=== PATIENT | male | born 1965 | race Two or more races ===

== ENCOUNTER 2017-01-03 09:31 | Emergency (ER) | payer OTHER ==
--- NOTE | ~2017-01-03 | ER ---
PATIENT'S NAME: POOJA LEOS [facility] AGE: 51 Y [address] ROOM: [place] [address] LOCATION: ED ADMIT DATE: 01/03/2017 ER/Outpatient Report DISCHARGE DATE: 01/03/2017 FAMILY PHYSICIAN: Miladys Holloway MD ATTENDING PHYSICIAN: Mike Cotton Admission date and time documented on the medical record. I saw the patient at 0945 hours. CHIEF COMPLAINT: Chest pain. HISTORY OF PRESENT ILLNESS: This is a 51-year-old male who comes in with left anterior chest pain radiating to his left shoulder, started this morning at about 8:30 hours at work. He had accompanied dizziness, lightheadedness, with some nausea. No shortness of breath, diaphoresis, or vomiting. No recent coughs, colds, flus, fever, chills, or sweats. No fall or trauma. He has had some problems with his blood pressure of late. Does have insulin-dependent diabetes mellitus. No history of cardiac problems other than the hypertension. He had a similar episode this past , that last about 10-12 hours and then again on Tuesday, that last about 3 hours. He was seen on Tuesday of this past week by his personal physician. No headache, eyes, ears, nose, throat, neck, or spine pain. No abdominal pain, diarrhea, or urinary symptoms. No joint or muscle swelling, redness, or pain. No skin eruptions or rash. No history of psych issues. Does have history of CVA, but no seizure disorder or TIAs. Does have insulin-dependent diabetes mellitus since age 20. HOME MEDICATIONS: See attached medication list. ALLERGIES: NONE. SOCIAL HISTORY: Nonsmoker. Occasional intake of alcohol. SIGNIFICANT PAST MEDICAL HISTORY: Insulin-dependent diabetes mellitus type 2, MRSA positive, septic left hip, sepsis, hypertension, and dyslipidemia. OPERATIONS: Incision and drainage of left hip. REVIEW OF SYSTEMS: PATIENT'S NAME: POOJA LEOS [facility] AGE: 51 Y [address] ROOM: [place] [address] LOCATION: ED ADMIT DATE: 01/03/2017 ER/Outpatient Report DISCHARGE DATE: 01/03/2017 FAMILY PHYSICIAN: Miladys Holloway MD ATTENDING PHYSICIAN: Mike Cotton All systems reviewed by me are negative with exception of those discussed in the history of present illness. PHYSICAL EXAMINATION: VITAL SIGNS: Temperature 97.4 tympanic, pulse 76, respirations 18, blood pressure 186/104, O2 saturation on room air is 97%. Ana Coma Scale was 15. HEAD: Normocephalic. EYES: Extraocular muscles intact. PERRL. Sclerae and conjunctivae clear, nonicteric. EARS: Clear TMs bilaterally. NOSE AND THROAT: Clear. Mucous membranes moist. Teeth and jaw intact. NECK: No nuchal rigidity. No thyromegaly or cervical adenopathy. No carotid bruits. SPINE: Negative. LUNGS: Clear to air flow. No rales, rhonchi, or wheezes. HEART: Regular. Pulses are palpable. No chest wall or ribcage tenderness to palpation. ABDOMEN: Soft, nondistended, nontender. Good bowel tones. No organomegaly or abnormal mass palpable. EXTREMITIES: Intact. No peripheral edema, cyanosis, or deformity. Neurovascular, intact. SKIN: Clear. DIAGNOSTIC DATA: EKG showed no acute ST elevation, ischemic change, or arrhythmia. Chest x-ray showed no acute infiltrate or changes. Laboratory, D-dimer was elevated 0.68. CMS was normal except an elevated blood sugar of 205, low calcium of 8.3, magnesium was 1.8. CPK was 108. Point of care cardiac enzymes were normal x2, 2 hours apart. White count is 9500, 72 segs, 18 lymphs, 9 monos, 1 eosinophil. Hemoglobin is 14.5, hematocrit 44.3, platelet count 298,000. PTT was 24, pro-time is 9.9 with an INR 0.94. Since the patient's D-dimer was elevated, we did proceed with a CT scan of the chest with PE protocol. Scan was read by Radiology. Impression was very abnormal lower lobes with patchy ground-glass and opacities with some bronchial wall thickening. Could be inflammatory or allergic, but could not exclude a chronic process. There is some patchy opacity in the lingula of the left upper lobe. Again, there was no pulmonary embolism. IMPRESSION: 1. Left anterior chest pain, etiology uncertain. Cardiac workup was negative. He does have some lung abnormalities on CT scan that could be consistent with inflammatory, allergic, or infective process. 2. Hypertension. 3. Insulin-dependent diabetes mellitus type 2. PATIENT'S NAME: POOJA LEOS [facility] AGE: 51 Y [address] ROOM: [place] [address] LOCATION: ED ADMIT DATE: 01/03/2017 ER/Outpatient Report DISCHARGE DATE: 01/03/2017 FAMILY PHYSICIAN: Miladys Holloway MD ATTENDING PHYSICIAN: Mike Cotton 4. Dyslipidemia. PLAN: I did discuss the patient with Dr. Sharma, granulating machine operator. Dr. Sharma suggested treating him as a pneumonia with Levaquin 500 mg once a day and then Motrin 800 mg 4 times a day for possible inflammatory process. He said that if he continues to worsen and by Tuesday if he is lot worse, he needs to come to his clinic. If he does better, he is to follow up in [address] scan is back to normal or markedly improved, we will probably let him go home. If it is unchanged, he will probably need to have a bronchoscopy. I did address his hypertension. We will place him on lisinopril/hydrochlorothiazide 10 mg/12.5 mg once a day for 2 weeks. He is to follow up with his personal physician in 1 to 2 weeks to monitor his blood pressure. Discussion ensued with the patient concerning my findings and recommendations, he understands. MD HERNANDEZ GARCIA/modl /[id number] d: 01/03/171812 t: 01/04/1712, OUTPATIENT REPORT
[~2017-01-03 09:31] MED LIST: ADVIL200 MG PO; ASPIRIN EC325 MG PO; BACTRIM DS1 TAB PO; BACTROBAN N1 GM/TUBE TOP; CELEBREX200 MG PO; CIALIS10 MG PO; COLACE100 MG PO; GLUCOSE4 GM PO; GLYBURIDE5 MG PO; HUMULIN N100 UNIT/2 SUB-Q; LACTINEX (FLORA1 TAB PO; LANTUS (IN100 UNIT/M SUB-Q; LIPITOR80 MG PO; MIRALAX17 GM PO; NEURONTIN100 MG PO; NOVOLIN-N100 UNIT/M SUB-Q; NOVOLOG100 UNIT/M SUB-Q; NUCYNTA50 MG PO; PERCOCET 10-321 EACH PO; PROTONIX20 MG PO; ROCEPHIN2 G1 IV; ROXICODONE 5MG (5 MG PO; TYLENOL325 MG PO; ULTRAM50 MG PO; [UNRECOGNIZED DRUG - OTHER]
[2017-01-03 09:53] LABS: BASOPHIL % 0.3 %; EOSINOPHIL # 0.1 K/uL (0.0-0.5); EOSINOPHIL % 0.7 %; HEMOGLOBIN 14.5 g/dL (12.0-17.0); IMMATURE GRANULOCYTE % 0.2 %; LYMPHOCYTE # 1.7 K/uL (0.8-4.0); LYMPHOCYTE % 17.5 %; MCHC 32.7 gm/dL (32.0-36.5); MCV 80.5 fl (83.0-98.0); MONOCYTE # 0.9 K/uL (0.0-1.0); MONOCYTE % 9.3 %; MPV 9.9 fl (9.4-12.4); NEUTROPHIL # (ANC) 6.8 K/uL (1.4-9.0); NRBC % 0 /100WBC (0-0.00); PLATELET COUNT 298 K/uL (150-450); WBC 9.5 K/uL (4.0-11.0)
[2017-01-03 10:01] LABS: MCH 26.4 pg (27.0-34.0)
[2017-01-03 10:02] LABS: HEMATOCRIT 44.3 % (37.0-53.0)
[2017-01-03 10:07] LABS: INR - (THERAPEUTIC) 0.94 (0.92-1.07); PROTIME 9.9 SECONDS (9.8-11.4); PTT 24 SECONDS (25-32)
[2017-01-03 10:25] LABS: ALBUMIN 3.4 gm/dL (3.5-5.0); ALK PHOS 99 IU/L (33-138); ALT 21 IU/L (12-78); ANION GAP 11.8 (10.0-19.0); AST 22 IU/L (10-40); BLOOD UREA NITROGEN 22 mg/dL (6-24); CALCIUM 8.3 mg/dL (8.5-10.5); CHLORIDE 104 mMol/L (96-110); CO2 25 mMol/L (22-32); CPK 108 IU/L (35-332); CREATININE 1.2 mg/dL (0.6-1.3); ESTIMATED GFR (MDRD EQUATION) > 60; MAGNESIUM 1.8 mg/dL (1.8-2.6); POTASSIUM 3.8 mMol/L (3.7-5.1); SODIUM 137 mMol/L (135-145); TOTAL PROTEIN 7.9 g/dL (6.0-8.4)
[2017-01-03 10:26] LABS: TOTAL BILIRUBIN 0.2 mg/dL (0.0-1.5)
[2017-01-03 12:08] LABS: CPK 84 IU/L (35-332)
== END 2017-01-03 12:55 | disposition disaster alternative care site (69) ==
LOC: GMED 09:31
PROVIDERS: Emergency Medicine
DX: R07.89 Other chest pain (principal); I10 Essential (primary) hypertension; E11.9 Type 2 diabetes mellitus without complications; E78.5 Hyperlipidemia, unspecified

== ENCOUNTER 2017-04-29 06:07 | Emergency (ER) | payer OTHER ==
--- NOTE | ~2017-04-29 | ER ---
PATIENT'S NAME: DERIC [facility] AGE: 51 Y [address] ROOM: [place] [id number] LOCATION: ED ADMIT DATE: 04/29/2017 ER/Outpatient Report DISCHARGE DATE: 04/29/2017 FAMILY PHYSICIAN: Miladys Holloway MD ATTENDING PHYSICIAN: Moshe Cornejo CHIEF COMPLAINT: Altered mental status. HISTORY OF PRESENT ILLNESS: Mr. 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 He began to act confused and was not interacting appropriately. He is given apple juice and orange juice, out of concern for possible diabetic reaction and continued to be confused. An assistance alert was called and the patient was seen by the flight team. At that time, they report that he had a tonic-clonic seizure and bit his mouth. He was foaming. Exact duration was not noted, but it seemed to be less than 2 minutes. No abortive medications were given and he was brought to the emergency department. PAST MEDICAL HISTORY: Notable for multiple recurrent infections and diabetes. The patient states later on re-evaluation that he has been taking his medications as he is supposed to. Other past medical history includes recurrent orthopedic infections related to his immunosuppressed status with infections of the back and left hip and knee. MEDICATIONS: Documented on the record and reviewed by me and obtained from collateral records as well. ALLERGIES: DOCUMENTED ON THE RECORD AND REVIEWED BY ME AND OBTAINED FROM COLLATERAL RECORDS WELL. SOCIAL HISTORY: Documented on the record and reviewed by me and obtained from collateral records as well. REVIEW OF SYSTEMS: Initially was unable to be obtained secondary to mental status; however, on re- evaluation, the patient only describes tiredness, headache, and some mouth pain. PHYSICAL EXAMINATION: PATIENT'S NAME: DERIC [facility] AGE: 51 Y [address] ROOM: [place], [place] [address] LOCATION: ED ADMIT DATE: 04/29/2017 ER/Outpatient Report DISCHARGE DATE: 04/29/2017 FAMILY PHYSICIAN: Miladys Holloway MD ATTENDING PHYSICIAN: Moshe Cornejo VITAL SIGNS: Blood pressure initially 224/115, with patient struggling significantly at that time, as he was encephalopathic. Discharge blood pressure 173/94. Pulse is 104, respiratory rate is 18, temperature 96.1, SpO2 is 94-95% on room air. Pain is 0/10. GENERAL: Age-appropriate male, recumbent on the exam table. Initially listless and lethargic; however, the patient would open eyes to command. The patient did become combative shortly, but this resolved rapidly after administration of glucose. He was then conversant, calmed down significantly and was appropriate, but remained amnestic to those events on re-evaluation. HEENT: Normocephalic, atraumatic. Eyes are PERRL. Pupils are 2-3 mm reactive bilateral. The oropharynx is notable for some scant blood. No clear lacerations, no active bleeding. NECK: Supple. Trachea is midline. CHEST: Heart is regular rate and rhythm with no murmurs. LUNGS: Clear to auscultation bilateral. No rhonchi, wheezes, or rales. ABDOMEN: Soft, nontender, and nondistended. No rebound or guarding. BACK: Normal to inspection and palpation. EXTREMITIES: Warm and well perfused. No obvious deformities, erythema, or tenderness. SKIN: Without any active acute rashes. LABS AND X-RAYS: Head CT is notable for a right thalamic abnormality that is unchanged compared to prior studies with no obvious hemorrhage per discussion with Radiology. EKG initially with some lateral ST-segment depressions with some baseline variation. Repeat EKG is normal and unchanged compared to prior EKGs. Initial lactate was 12.2, white count is 13.1, hemoglobin 16.6, platelets of 302. Initial and repeat troponin are not elevated. Renal panel on repeat was sodium 143, potassium 3.4, chloride is 109, BUN is 15, creatinine 1.3. Procalcitonin is undetectable. The INR is less than 1. ESR is 23. CMS initially sodium 143, potassium 2.8, chloride is 107, glucose is 54. No other obvious hepatobiliary abnormalities. CRP is undetectable. Thyroid studies within normal limits. Accu-Cheks 64, IMPRESSION: 1. Hypoglycemic event. 2. Hypoglycemic seizure. 3. Hypokalemia. 4. Stable right thalamic vascular malformation. EMERGENCY DEPARTMENT COURSE: The patient was seen and evaluated at bedside. Gentle restraint was used to facilitate IV placement, as the patient was slightly encephalopathic and PATIENT'S NAME: POOJA LEOS [facility] AGE: 51 Y [address] ROOM: [place], [place] [address] LOCATION: [facility] ADMIT DATE: 04/29/2017 ER/Outpatient Report DISCHARGE DATE: 04/29/2017 FAMILY PHYSICIAN: Miladys Holloway MD ATTENDING PHYSICIAN: Moshe Cornejo combative at that time. An amp of D50 was administered with rapid improvement in his mental status. Within 2 minutes, he was conversant. On re-evaluation, he is feeling just fine. He has a slight headache and some generalized tiredness. Based on the patient's presentation and his recent concerning symptoms, I did do a cardiac workup on him. Troponin remains undetectable. He has no chest pain. He is otherwise feeling fine. The lateral ST-segment changes were improved on re-evaluation. His CK-MB is up trending, although I believe that secondary to his seizure. His lactic acidosis was improved on re- evaluation. The patient had returned to normal baseline mental status. I discussed the head CT findings and seizure with both Dr. Gant, neurosurgeon; and Dr. Patel, neurologist, and neither of them feel the patient warrants specific follow up, which I concur with, as I believe the seizure was related to his hypoglycemia. I am recommending that the patient take the rest of the day off and monitor his sugars closely; however, should he feel he needs to work that would be okay. As I believe this is a metabolical induced seizure from a clearly defined etiology, I think the patient can continue driving. The patient was discharged to the care of his . His was updated at bedside using a underpresser hand to ensure adequate communication. All questions were answered and the patient was discharged in good condition. MD VIRAJ SANCHEZ/libbyl /[id number] d: 04/29/17 1428 t: 05/10/17 0621, OUTPATIENT REPORT
[2017-04-29 06:43] LABS: HEMATOCRIT 51.1 % (37.0-53.0); HEMOGLOBIN 16.6 g/dL (12.0-17.0); MCH 27.9 pg (27.0-34.0); MCHC 32.5 gm/dL (32.0-36.5); PLATELET COUNT 302 K/uL (150-450); RBC 5.95 M/uL (4.00-6.00); RDW-CV 15.4 % (11.9-14.6); WBC 13.1 K/uL (4.0-11.0)
[2017-04-29 06:46] LABS: MCV 85.9 fl (83.0-98.0)
[2017-04-29 06:54] LABS: INR - (THERAPEUTIC) 0.96 (0.92-1.07); PROTIME 10.1 SECONDS (9.8-11.4); PTT 26 SECONDS (25-32)
[2017-04-29 07:14] LABS: LYMPHOCYTE # 5.5 K/uL (0.8-4.0); LYMPHOCYTE % 42 %; MONOCYTE # 1.2 K/uL (0.0-1.0); SEGMENTED NEUTROPHIL % 46 %
[2017-04-29 07:16] LABS: ALBUMIN 3.8 gm/dL (3.5-5.0); ALK PHOS 103 IU/L (33-138); ALT 32 IU/L (12-78); AST 31 IU/L (10-40); BLOOD UREA NITROGEN 15 mg/dL (6-24); CALCIUM 8.7 mg/dL (8.5-10.5); CHLORIDE 107 mMol/L (96-110); CO2 19 mMol/L (22-32); CREATININE 1.6 mg/dL (0.6-1.3); SODIUM 143 mMol/L (135-145); TOTAL PROTEIN 8.4 g/dL (6.0-8.4)
[2017-04-29 07:18] LABS: ANION GAP 19.8 (10.0-19.0); POTASSIUM 2.8 mMol/L (3.7-5.1)
[2017-04-29 07:19] LABS: TOTAL BILIRUBIN 0.5 mg/dL (0.0-1.5)
[2017-04-29 08:34] LABS: ANION GAP 9.4 (10.0-19.0); CALCIUM 8.1 mg/dL (8.5-10.5); CREATININE 1.3 mg/dL (0.6-1.3); POTASSIUM 3.4 mMol/L (3.7-5.1)
[2017-04-29 08:37] LABS: CPK 183 IU/L (35-332)
== END 2017-04-29 09:27 | disposition disaster alternative care site (69) ==
LOC: GMED 06:07
PROVIDERS: Emergency Medicine
DX: R56.9 Unspecified convulsions (principal); E11.649 Type 2 diabetes mellitus with hypoglycemia without coma; E87.6 Hypokalemia; Q28.2 Arteriovenous malformation of cerebral vessels; I10 Essential (primary) hypertension; E78.5 Hyperlipidemia, unspecified; Z98.890 Other specified postprocedural states; Z79.4 Long term (current) use of insulin
CPT/HCPCS: J7030